=== PATIENT | female | born 1960 | race Caucasian/White ===

== ENCOUNTER → 2016-08-20 | Outpatient (CLI) | payer BC ==
[2016-08-20 11:18] LABS: BLOOD UREA NITROGEN 16 mg/dl (7-18); BUN/CREATININE RATIO 18.5 (10-20); CALCIUM 9.4 mg/dl (8.5-10.1); CARBON DIOXIDE 27 mmol/L (21-32); CHLORIDE 106 mmol/L (98-107); CREATININE 0.84 mg/dl (0.60-1.20); GLUCOSE 95 mg/dl (70-99); SODIUM 141 mmol/L (136-145)
== END | disposition home or self-care (01) ==
LOC: C.LABBC 07:51
PROVIDERS: ATTEND Family Medicine
DX: E78.5 Hyperlipidemia, unspecified (principal); I10 Essential (primary) hypertension; E53.9 Vitamin B deficiency, unspecified

== ENCOUNTER → 2017-02-15 | Outpatient (CLI) | payer BC ==
[2017-02-15 11:09] LABS: BASO % 0.5 %; BASO ABS # 0.02 K/uL (0-0.2); COMPLETE YES; EOS % 3.1 %; HEMATOCRIT 37.2 % (37-47); IG% 0.2 %; LYMPH % 35.6 %; LYMPH ABS # 1.51 K/uL (1.2-3.4); MEAN CELL VOLUME 86.3 fL (80-100); MEAN CORPUSCULAR HEMOGLOBIN 28.3 pg (25-34); MEAN CORPUSCULAR HGB CONC 32.8 g/dl (32-36); MEAN PLATELET VOLUME 10.5 fL (7.4-10.4); MONO % 10.4 %; NEUT % 50.2 %; PLATELET COUNT 227 K/uL (130-400); RED BLOOD COUNT 4.31 M/uL (4.2-5.4); WHITE BLOOD COUNT 4.24 K/uL (4.8-10.8)
[2017-02-15 12:03] LABS: ALT/SGPT 28 U/L (12-78); AST/SGOT 25 U/L (15-37); BLOOD UREA NITROGEN 12 mg/dl (7-18); BUN/CREATININE RATIO 15.1 (10-20); CALCIUM 9.4 mg/dl (8.5-10.1); CARBON DIOXIDE 28 mmol/L (21-32); CHLORIDE 108 mmol/L (98-107); CHOLESTEROL 189 mg/dl (0-200); CREATININE 0.79 mg/dl (0.60-1.20); GLUCOSE 94 mg/dl (70-99); POTASSIUM 3.9 mmol/L (3.5-5.1); SODIUM 140 mmol/L (136-145); TRIGLYCERIDES 137 mg/dl (0-150); VERY LOW DENSITY LIPOPROT CALC 27 mg/dl
[2017-02-15 12:05] LABS: ALB/GLOB RATIO 1.1 (0.9-2); ALKALINE PHOSPHATASE 74 U/L (45-117); CHOLESTEROL/HDL RATIO 3.3; HDL CHOLESTEROL 58 mg/dl
== END | disposition home or self-care (01) ==
LOC: C.LABBC 07:34
PROVIDERS: ATTEND Physician Assistant Medical
DX: D50.9 Iron deficiency anemia, unspecified (principal); E78.5 Hyperlipidemia, unspecified; I10 Essential (primary) hypertension; Z11.59 Encounter for screening for other viral diseases; E53.9 Vitamin B deficiency, unspecified

== ENCOUNTER → 2018-02-06 | Outpatient (CLI) | payer BC ==
--- NOTE | 2018-02-06 16:02 | DIAGNOSTIC IMAGING REPORT ---
ULTRASOUND OF THE PELVIS CLINICAL HISTORY: Postmenopausal bleeding. COMPARISON STUDY: No priors. TECHNIQUE: Real-time, grayscale, and color flow sonography of the pelvis is performed both transabdominally and endovaginally. Images are reviewed in the transverse and longitudinal planes. FINDINGS: Uterus: The retroverted uterus is normal in size and slightly heterogeneous and echotexture, measuring 9.1 x 4.0 x 4.7 cm. Small intramural fibroids are suggested. Endometrium: The endometrium is normal in appearance, and the endometrial stripe is normal in thickness measuring up to 0.3 cm. Ovaries: The right ovary is normal in appearance, measuring 2.7 x 0.8 x 1.7 cm. The left ovary was not visualized normal Doppler waveforms are shown within the right ovary. Pelvis: There is no free fluid in the cul-de-sac. No concerning adnexal lesion is seen. IMPRESSION: 1. Suspect small uterine fibroids. 2. The endometrial stripe measures up to 3 mm. 3. The right ovary is normal as imaged. 4. The left ovary was not visualized. Electronically signed by: Dylan Christina M.D. 02/06/2018 4:00 PM Dictated Date/Time: 02/06/2018 3:58 PM
== END | disposition home or self-care (01) ==
LOC: C.ULTR 14:59
PROVIDERS: ATTEND Family Medicine
DX: N95.0 Postmenopausal bleeding (principal)

== ENCOUNTER → 2018-02-08 | Outpatient (CLI) | payer BC | END | disposition home or self-care (01) | LOC: C.PAPS 13:29 | PROVIDERS: ATTEND Family Medicine | DX: Z12.72 Encounter for screening for malignant neoplasm of vagina (principal) ==

== ENCOUNTER → 2018-03-02 | Outpatient (CLI) | payer BC | END | disposition home or self-care (01) | LOC: C.PATHSPEC 16:10 | PROVIDERS: ATTEND Obstetrics & Gynecology | DX: N95.0 Postmenopausal bleeding (principal) ==

== ENCOUNTER 2024-02-06 05:15 | Observation (INO) ==
--- NOTE | 2024-01-10 14:24 | PAT Medication Instructions ---
Medication Instructions Date of Service January 10, 2024 Home Medications aspirin 81 mg tablet,delayed release (Adult Aspirin Regimen) 81 mg PO QAM atenolol 50 mg tablet 50 mg PO QAM hydrochlorothiazide 25 mg tablet 25 mg PO QAM multivitamin (Daily Multi-Vitamin tablet) 1 tab PO QAM atorvastatin 20 mg tablet 20 mg PO HS irfhtpo-zuznclivw-ccts tablet 1 tab PO QAM collagen,hydrolysate 500 mg-biotin 800 mcg-ascorbic acid 50 mg capsule (Collagen 1500 Plus C) 1 cap PO QAM meloxicam 15 mg tablet 15 mg PO DAILY PRN Pain omega-3 fatty acids 1 cap PO QAM MEDICATION INSTRUCTIONS: ASK your surgeon for instructions meloxicam 15 mg tablet 15 mg PO DAILY PRN Pain ASK your prescriber and surgeon aspirin 81 mg tablet,delayed release (Adult Aspirin Regimen) 81 mg PO QAM STOP taking 2 weeks before surgery collagen,hydrolysate 500 mg-biotin 800 mcg-ascorbic acid 50 mg capsule (Collagen 1500 Plus C) 1 cap PO QAM omega-3 fatty acids 1 cap PO QAM DO NOT take the morning of surgery fkcygwy-pefnajatu-qivj tablet 1 tab PO QAM hydrochlorothiazide 25 mg tablet 25 mg PO QAM multivitamin (Daily Multi-Vitamin tablet) 1 tab PO QAM Take morning of surgery With a small sip of water, OTHERWISE NOTHING TO EAT OR DRINK AFTER MIDNIGHT: atenolol 50 mg tablet 50 mg PO QAM Take evening before surgery atorvastatin 20 mg tablet 20 mg PO HS Other Notes If you have any questions please call us at [phone] or [phone] or [phone] or [phone]
--- NOTE | 2024-01-16 14:40 | Anesthesiology Consultation ---
Date of Service January 16, 2024 Assessment & Plan (1) Encounter for pre-operative examination: - Outpatient joint assessment: Patient is currently scheduled for inpatient pathway. If re-evaluated and patient/surgeon requests outpatient pathway, patient is acceptable candidate for outpatient joint program from anesthesia standpoint pending surgeon's office assessment of pt motivation/support/completion of same day joint program preop requirements. Chart Review Chart Review: Acceptable Risk for Surgery and Patient seen in Pre Admission Testing Teaching & Discussion Pre-Anesthesia Teaching/Discussion Notes: Instructed NPO after midnight before surgery, except medications with 15 cc of water. Medication instructions provided according to the PAT guidelines. History Surgery Operation Date: 02/06/24 07:00 Proposed Procedures p Right Total Knee Arthroplasty - Kevin Levin MD Height/Weight Height: 5 ft 7 in Weight: 94 kg Allergies Allergy/AdvReac Type Severity Reaction Status Date / Time No Known Allergies Allergy Verified 01/04/24 14:32 Medications Home Medications Medication Instructions Recorded Confirmed Last Taken aspirin 81 mg tablet,delayed 81 mg PO QAM 10/22/22 01/04/24 Unknown release (Adult Aspirin Regimen) atenolol 50 mg tablet 50 mg PO QAM 10/22/22 01/04/24 Unknown hydrochlorothiazide 25 mg tablet 25 mg PO QAM 10/22/22 01/04/24 Unknown multivitamin (Daily Multi-Vitamin 1 tab PO QAM 10/22/22 01/04/24 Unknown tablet) atorvastatin 20 mg tablet 20 mg PO HS 01/04/24 01/04/24 Unknown nqdtmhw-gkcjlowck-lrkn tablet 1 tab PO QAM 01/04/24 01/04/24 Unknown collagen,hydrolysate 500 mg-biotin 1 cap PO QAM 01/04/24 01/04/24 Unknown 800 mcg-ascorbic acid 50 mg capsule (Collagen 1500 Plus C) meloxicam 15 mg tablet 15 mg PO DAILY PRN Pain 01/04/24 01/04/24 Unknown omega-3 fatty acids 1 cap PO QAM 01/04/24 01/04/24 Unknown Past Medical History Medical History GERD (gastroesophageal reflux disease) infrequent-controlled with diet Hyperlipidemia Hypertension controlled, stable per pt Patient denies h/o stroke, seizures, heart attack, heart failure, DM, blood clots/DVTs or blood transfusions. Exercise / Class Metabolic Activity II 4-5 Yardwork/Stairs/Walk up hill (denies chest discomfort or shortness of breath with one flight of stairs) Past Family History Family History Aunt Colorectal cancer paternal aunt Mother Parkinsons disease Hypertension Coronary heart disease Father Diabetes Brother Coronary heart disease Denies family history of Ovarian cancer Breast cancer Past Surgical History Surgical History Hx of colonoscopy S/P cholecystectomy S/P wisdom tooth extraction Past Anesthesia History No Hx of Anesthesia Complications and No Family Hx of Anesthesia Complications History of PONV No Hx of Motion Sickness and History of PONV (unsure if has received scop patch) Social History Smoking Status: Never smoker Do You Dip or Chew Tobacco: No Hx Alcohol Use: No Hx Substance Use: No substance use type: does not use Review of Systems Occasional snoring, denies witnessed apneas. Patient denies chest pain, shortness of breath, dyspnea on exertion, fever, c hills, cough, wheezing, or palpitations. Physical Exam Vital Signs Vitals BP 120/68 P 55 TEMP 98.5 SP02 96% on RA RESP 18 Physical Patient resting comfortably in chair in no acute distress, alert and oriented, responding appropriately throughout visit Full cervical extension range of motion without pain TMD 3.5 finger breadths Mallampati Score 3 Dentition: intact, denies chipped or loose teeth, caps/crowns, implants or bridges Lungs: normal respiratory effort. Good air movement, clear throughout to auscultation, no adventitious breath sounds Cardiac: regular rate and rhythm, no murmurs noted Carotid arteries: negative bruit bilat Lab Results Anesthesia Preop Results Results Anesthesia Widget: WBC 4.75 K/ul (4.8-10.8) L 01/16/24 Hgb 12.4 g/dl (12.0-16.0) 01/16/24 Hct 38.6 % (37.0-47.0) 01/16/24 Plt 243 K/uL (130-400) 01/16/24 Na 140 mmol/L (136-145) 01/16/24 K 3.5 mmol/L (3.5-5.1) 01/16/24 Cl 102 mmol/L (98-107) 01/16/24 CO2 30 mmol/L (21-32) 01/16/24 BUN 19 mg/dl (6-23) 01/16/24 Creat 0.79 mg/dl (0.6-1.2) 01/16/24 Glucose Level 107 mg/dl (70-99(Fasting)) H 01/16/24 PT 11.2 Seconds (9.0-12.0) 01/16/24 PTT 26 Seconds (21-31) 01/16/24 INR 1.0 (0.9-1.1) 01/16/24 Blood Type A Positive 01/16/24 Antibody Screen NEGATIVE 01/16/24 Testing Electrocardiogram Date: 01/16/24 Sinus bradycardia with 1st degree AV block, rate 52 bpm Left axis deviation Possible inferior infarct, age undetermined Chest X-Ray Date: 01/16/24 No active disease in the chest.
[2024-02-06] MEDS: ACETAMINOPHEN 500 MG TAB PO SCH ×2 (05:53→13:40)
[2024-02-06] MEDS: CeleBREX 200 MG CAP PO SCH (05:54)
[2024-02-06] MEDS: LR 60ML/HR IV SCH (05:55)
[2024-02-06] MEDS: FAMOTIDINE 20 MG TAB PO SCH (05:55)
[2024-02-06] MEDS: dexAMETHasone**PF** 10 MG/ML VIAL IV SCH (05:55)
[2024-02-06] MEDS: Scopolamine 1 MG TDSY TD SCH (05:56)
[2024-02-06] MEDS: METOCLOPRAMIDE HCL 10 MG TABLET PO SCH (05:56)
[2024-02-06] MEDS ORDERED: ROPIVACAINE 0.5% 5 MG/ML 30 ML VIAL ONE (06:35)
[2024-02-06] MEDS ORDERED: fentaNYL citrate PF 100 MCG/2 ML VIAL ONE (06:38)
[2024-02-06] MEDS ORDERED: MIDAZOLAM HCL 1 MG/ML 2ML VIAL ONE ×2 (06:38→06:39)
[2024-02-06] MEDS ORDERED: ATROPINE SULFATE 0.1 MG/ML 10ML SYR IV PRN (06:41)
[2024-02-06] MEDS ORDERED: HYDROmorphone INJ 2 MG/ML SYR/VIAL IV PRN (06:41)
[2024-02-06] MEDS ORDERED: ePHEDrine sulfate 50 MG/ML AMP IV PRN (06:41)
[2024-02-06] MEDS ORDERED: ONDANSETRON INJ 2 MG/ML 2 ML VIAL IV PRN ×2 (06:41→09:56)
[2024-02-06] MEDS ORDERED: fentaNYL citrate PF 100 MCG/2 ML VIAL IV PRN (06:41)
--- NOTE | 2024-02-06 06:42 | History & Physical Bridge Note ---
Date of Service February 06, 2024 History & Physical Bridge Note I have examined the patient, reviewed the History & Physical and in the interval since the performance of the History & Physical I have noted the following changes of clinical significance: no changes noted
[2024-02-06] MEDS ORDERED: PROPOFOL IV EMULSION 10 MG/ML 20 ML VIAL IV ONE ×6 (06:43→07:31)
[2024-02-06] MEDS: ceFAZolin 2000MG 2,000 MG/15 ML SYR IV SCH ×2 (07:00→13:41)
[2024-02-06] MEDS ORDERED: GLYCOPYRROLATE 0.2 MG/ML VIAL ONE (07:11)
[2024-02-06] MEDS ORDERED: ONDANSETRON INJ 2 MG/ML 2 ML VIAL ONE (07:32)
[2024-02-06] MEDS: TRANEXAMIC ACID 1,000 MG **IV Intra-op IV SCH (07:51)
[2024-02-06] MEDS: ORTHO JOINT ANESTHETIC ONE (07:52)
[2024-02-06] MEDS ORDERED: SODIUM CHLORIDE 0.9% PF INJ 10 ML VIAL ONE (08:13)
[2024-02-06] MEDS: ROPIV 0.5% 246mg, Ketorolac 30mg, EPINEPHrine 0.5mg in NSS INFIL SCH (08:13)
[2024-02-06] MEDS ORDERED: ePHEDrine sulfate 50 MG/ML AMP ONE (08:13)
--- NOTE | 2024-02-06 09:04 | Operative Report ---
PG Post Operative Report Pre & Post Diagnosis Operation Date: 02/06/24 07:00 Pre-Op Diagnosis: Right Knee Degenerative Joint Disease Post-Op Diagnosis: Right Knee Degenerative Joint Disease I identified the patient and participated in the time-out.: Yes Procedure Operation Date: 02/06/24 07:00 Actual Procedures p Right Total Knee Arthroplasty(Right) - Kevin Levin MD Surgeon Kevin Levin MD Machine Sprayer None Estimated Blood Loss 50 Findings Consistent with Post-Op Diagnosis Operative findings revealed a right knee DJD. She had extensive grade 4 rkei-jj-cakr disease of the patellofemoral joint. She had some focal grade 4 changes in the medial compartment. The lateral compartment showed some age- related changes. She did have a moderate-sized joint effusion. Specimens Right knee sent for pathology. Complications none Disposition Accompanied Patient To Recovery: No Indications Patient is a 63-year-old female is had a several year history of increasing right knee pain discomforts got significant worse over the past year. That she been through extensive conservative treatments became less successful over time. X-rays show moderate knee arthritis. She failed all conservative measures. She elected proceed with a right total knee arthroplasty. Description of Procedure Operative implants consist of: 1. Biomet Vanguard size 65 right posterior stabilized femoral component. 2. Biomet size 67 tibial tray. 3. 10 mm posterior stabilized polyethylene insert. 4. 31 x 8 all poly patella. The patient was taken the operating, identified, placed on the operating table in the supine position. All contact areas were appropriately padded. IV antibiotics tried by anesthesia team. A spinal anesthetic and adductor canal block had been provided in the holding area. Ortiz catheter was placed in sterile fashion. A right thigh turn was then placed. The right lower extremity was then prepped and draped in usual sterile fashion. The right leg was elevated exsanguinated with use of an Esmarch and the tourniquet placed at 300 mmHg. An anterior approach of the right knee was then performed through a longitudinal incision centered over the patella. Sharp dissection was carried out through subcutaneous tissue down the extensor mechanism. Medial parapatellar arthrotomy incision was made. Some subperiosteal dissection was carried out medially. The fat pad was resected from Neath patella tendon. The lateral patellofemoral ligament was released. Patella subluxated laterally and the knee was flexed. The osteophytes taken on distal femur. The ACL and PCL were then released from distal femur and the tibia subluxated anteriorly. The external tibial alignment jig was then placed on the anterior face of the tibia and adjusted 14 mm medially. Proximal tibial cut was made remove out to 3 mm of bone from the medial side. The tibia sized to a size 67. Attention drawn the femur. The distal femur Zaro the sharp drill. Intramedullary canal was suction. A right 5 degree valgus cutting guide was placed. The distal femoral cutting block was pinned in place. Distal femoral cut was made to take an additional 3 mm bone off distal femur. The femur was then sized to a size 65. The AP cutting block was pinned parallel to the epicondylar axis which was 5 degrees of external rotation. The anterior cut, anterior chamfer, posterior cut, posterior chamfer cuts were made. The box cutting guide was placed in just slight lateral box cut was made. The knee was flexed. The remnants of the medial and lateral menisci were excised. The osteophyte taken off the posterior aspect of femur. A trial femoral component was placed. The tibial tray was pinned Harika external rotation and the drill and stem punch used to create defect in proximal tibia for the tibial tray. The knee was then trialed and the 10 mm insert fit most appropriately. Attention drawn to the patella. The patella was cleaned of all soft tissue. Patella thickness measured about 20 mm in thickness and was cut down to 13. It was sized to a size 31 patella. The lateral osteophyte was removed. Patella button was placed. Knee was taken through range of motion and the patella tracked nicely with no thumbs test. Attention drawn to placing permanent components. Nupathe all trial components were removed. A bone plug was placed in the distal femur limit blood loss. Mateus ble batch Palacos G cement was mixed. A Biomet Vanguard size 65 right posterior Byce femoral component, a size 67 tibial tray, a 10 mm post stabilized polyethylene insert, and a 31 x 8 all poly patella then cemented in place. The knee was brought out into full extension till cement hardened. Final cement check was then performed. The pericapsular tissues were injected with a total of 100 cc of orthopedic joint mix. The patient did receive 1 g tranexamic acid. The tourniquet was then let down for final tourniquet time of 55 minutes. Hemostasis assured use electrocautery. Extensor Meclomen closed with combination 1 PDS suture #1 Vicryl suture in [id number]-[id number]-[id number] fashion. Extensor Meclomen checked found to be intact. The subcutaneous tissues then closed with 2 Dexon suture in a buried interrupted fashion the skin was closed skin lucia. Leg was then cleaned and dried and a sterile dressing with Xeroform, 4 fours, sterile cast padding, Ross bandage were applied. The patient then transferred to the recovery in stable condition. Patient tolerated the procedure well and there were no complications. I attest to the content of the Intraoperative Record and any orders documented therein. Any exceptions are noted below.
--- NOTE | 2024-02-06 09:26 | XRay Report ---
XR knee RT 1 or 2V routine HISTORY: 63 years-old Female Surgical Post Op right knee arthroplasty COMPARISON: 12/19/2023 TECHNIQUE: 2 views of the right knee FINDINGS: Satisfactory alignment of the total joint arthroplasty. Anterior midline skin lucia. Expected posto perative soft tissue swelling with deep tissue air. IMPRESSION: Total joint arthroplasty with expected postoperative changes. ACT 112: Negative or not required by law. The above report was generated using voice recognition software. It may contain grammatical, syntax o r spelling errors. Electronically signed by: Trace Groves M.D. 02/06/2024 9:25 AM
--- NOTE | 2024-02-06 09:31 | Anesthesiology Progress Note ---
Date of Service February 06, 2024 Anesthesia Post Procedure Vital Signs Vital Signs: Temp Pulse Resp BP Pulse Ox O2 Del Method O2 Flow Rate 02/06/24 09:25 36.4 C L 66 16 108/61 96 Room Air 02/06/24 09:15 53 L 18 113/66 100 Oxymask 5 02/06/24 09:05 55 L 21 123/69 100 Oxymask 5 02/06/24 08:55 36.4 C L 74 25 H 122/64 96 Oxymask 5 02/06/24 05:43 36.5 C 52 L 20 140/81 95 Room Air Transfer of Care Handoff Completed per policy Notes Mental Status: alert / awake / arousable and participated in evaluation Patient Amnestic to Procedure: Yes Nausea / Vomiting: adequately controlled Pain: adequately controlled Airway Patency, RR, SpO2: stable & adequate BP & HR: stable & adequate Hydration State: stable & adequate Neuraxial Anesthesia: was administered and sensory block is resolving Anesthetic Complications: no major complications apparent and Pt Satisfied with anesthetic care
[2024-02-06] MEDS ORDERED: NALOXONE HCL 0.4 MG/1 ML VIAL/CARP IV PRN (09:56)
[2024-02-06] MEDS ORDERED: SENNA 8.6 MG TAB PO SCH (09:56)
[2024-02-06] MEDS ORDERED: NON-FORMULARY MEDICATION (Calcium-Magnesium-Zinc Tablet) PO SCH (09:56)
[2024-02-06] MEDS ORDERED: bisacodyL 10 MG SUPP PR PRN (09:56)
[2024-02-06] MEDS ORDERED: ONDANSETRON 4 MG OD TAB PO PRN (09:56)
[2024-02-06] MEDS ORDERED: MAGNESIUM HYDROXIDE SUSP 30 ML UDC PO PRN (09:56)
[2024-02-06] MEDS ORDERED: HYDROmorphone INJ 0.5 MG/0.5 ML SYR IV PRN (09:56)
[2024-02-06] MEDS ORDERED: METOCLOPRAMIDE HCL INJ 5 MG/ML 2 ML VIAL IV PRN (09:56)
[2024-02-06] MEDS ORDERED: MELATONIN 500 MCG PO PRN (09:56)
[2024-02-06] MEDS ORDERED: NON-FORMULARY MEDICATION (Multivitamin [Daily Multi-Vitamin] tablet) PO SCH (09:56)
[2024-02-06] MEDS ORDERED: diphenhydrAMINE Capsule 25 MG CAP PO PRN (09:56)
[2024-02-06] MEDS ORDERED: ALUMINUM/MAGNESIUM SUSP 30 ML UDC PO PRN (09:56)
[2024-02-06] MEDS: ASPIRIN 81 MG ECTAB PO SCH (10:51)
[2024-02-06] MEDS: OMEGA-3 (PURIFIED FISH OIL) 1 GM CAP PO SCH (10:51)
[2024-02-06] MEDS: DOCUSATE SODIUM 100 MG CAP PO SCH (10:51)
[2024-02-06] MEDS: hydroCHLOROthiazide 25 MG TAB PO SCH (10:51)
[2024-02-06] MEDS: MULTIVITAMIN TAB PO SCH (10:52)
[2024-02-06] MEDS: ATENOLOL 50 MG TABLET PO SCH (10:52)
[2024-02-06] MEDS: SODIUM CHLORIDE 0.9% 1,000 ML IV SCH (10:52)
[2024-02-06] MEDS: KETOROLAC 30 MG/ML VIAL IV SCH (10:53)
[2024-02-06] MEDS: TRANEXAMIC ACID / 0.7% NACL 1,000 MG/100 ML BAG IV SCH (14:02)
[2024-02-06] MEDS: ASCORBIC ACID 500 MG TAB PO SCH (16:05)
[2024-02-06] MEDS: Scopolamine CHECK PATCH PLACEMENT SCH (16:05)
[2024-02-06] MEDS: ATORVASTATIN 20 MG TAB PO SCH (20:05)
[2024-02-06] MEDS: SENNA 8.6 MG TAB PO SCH (20:06)
[2024-02-07 06:39] LABS: Hematocrit (blood only) 32.1 % (37.0-47.0); Hemoglobin 10.7 g/dl (12.0-16.0); Mean Corpuscular Hemoglobin 27.6 pg (25.0-34.0); Mean Corpuscular Hgb Conc 33.3 g/dL (32.0-36.0); Mean Corpuscular Volume 82.9 fL (80.0-100.0); Platelet Count 205 K/uL (130-400); RDW Coefficient of Variation 13.9 % (11.5-14.5); RDW Standard Deviation 41.5 fL (36.4-46.3); Red Blood Count 3.87 M/uL (4.20-5.40); White Blood Count 11.09 K/ul (4.8-10.8)
[2024-02-07 07:04] LABS: BUN Creatinine Ratio 25.3 (10-20); Calcium 8.8 mg/dl (8.6-10.3); Creatinine Clr Calc Pharmacy 91.2 ml/min; Est GFR (Non-African American) 85.4 ml/min; Potassium 3.4 mmol/L (3.5-5.1)
[2024-02-07] MEDS: oxyCODONE HCL IR 5 MG TAB (IMMEDIATE RELEASE) PO PRN (08:23)
[2024-02-07] MEDS: dexAMETHasone 10 MG in SYRINGE 0 ML IV SCH (08:25)
--- NOTE | 2024-02-07 08:58 | Orthopedic Progress Note ---
Date of Service February 07, 2024 Assessment & Plan (1) Status post right knee replacement: Plan: 63-year-old female postop day 1 from right knee replacement doing quite well. Pains controlled. She is neurologically intact. She is hoping to go home today. Plan: 1. DVT prophylaxis including thigh-high teds, SCDs, aspirin twice a day. 2. PT/OT. Weight-bear as tolerated. Right total knee protocol. 3. Pain control doing well with current pain regimen. 4. Disposition plan to discharge to home with home health after therapy today. Admission and Anticipated Discharge Date Admission Date: February 06, 2024 Subjective 63-year-old female postop day 1 from right knee replacement. She is doing quite well. Had a pretty good night. Pains controlled. No chest pain or shortness of breath. Not feeling dizzy or lightheaded. Physical Exam Physical Exam: Physical examination is a pleasant middle-age female. She is walking in the hallway with the therapist when I visited this morning. She looks quite comfortable. Walking quite well with a walker. Knee dressing is clean dry and intact. She can dorsiflex and plantarflex her foot appropriately. She can do a straight leg raise. Respiratory: normal respiratory effort, lungs clear to auscultation Cardiovascular: RRR, no murmur, no edema Gastrointestinal (Abdomen): normal bowel sounds, soft, nontender, no hepatosplenomegaly Results & Data Vital Signs (Past 12 Hours) Vital Signs Temp Pulse Resp BP Pulse Ox O2 Del Method 02/07/24 07:05 36.6 C 58 L 18 118/76 96 Room Air 02/07/24 03:38 37.1 C 56 L 16 127/73 98 Room Air 02/06/24 22:41 37.0 C 56 L 16 138/77 96 Room Air Laboratory Results Hemoglobin is 10.7. Hematocrit is 32.1. Electrolytes are stable.
--- NOTE | 2024-02-12 18:57 | Discharge Summary ---
Date of Service February 12, 2024 Discharge Data Procedures Performed Operation Date: 02/06/24 07:00 Actual Procedures p Right Total Knee Arthroplasty(Right) - Kevin Levin MD Hospital Course (1) Status post right knee replacement: This is a 63 year old patient admitted on 02/06/24 and underwent total knee arthroplasty. She tolerated the procedure well and there were no complications. Transferred to the PACU post op and later to the orthopedic floor for further care. She was given ancef for antibiotic prophylaxis. She was also given SELENE stockings, SCDs, and aspirin for DVT prophylaxis. Hemoglobin, hematocrit, and vital signs were monitored during her hospital stay and remained stable. Did not require any blood transfusions. There were no complications during her hospital stay. By post op day #1 the patient was tolerating a regular diet, pain was reasonably controlled with oral pain medicine, and she was participating in physical therapy. On post op day #1 the patient was discharged home and set up with home health care. She was given printed discharge instructions including prescriptions for extra strength tylenol, aspirin, ketorolac, cefadroxil, zofran, senokot, and oxycodone. Continue physical therapy, weight bearing as tolerated. Continue SELENE stockings. Follow up approximately 2 weeks post op or sooner if there are problems or concerns. Coding Level of Care Code None Diagnoses Status post right knee replacement Z96.651
== END 2024-02-07 11:07 | disposition home health service (06) ==
LOC: 3E 05:15 → ASU 05:15